=== PATIENT | male | born 1960 | race Caucasian/White ===

== ENCOUNTER 2016-12-19 08:19 | Emergency (ER) | payer OTHER ==
[2016-12-19 08:30] VITALS: BP 122/77
--- NOTE | 2016-12-23 12:21 | UC ---
heladio Vidal Timothy, scribed for Tracy Aguilera MD on 12/19/16 at 0919 . FLU HPI - HPI Summary HPI Summary: Harrison Lozoya is a 56 yo male presenting to [facility] with URI Sx including productive cough with green and yellow sputum, congestion, subjective fever, and sore throat since 12/13/16. he states that his cough is more productive at night when he sleeps on his back. He notes increased throat pain when he swallows. He has an O2 machine, but does not use CPAP. He notes some SOB due o his congestion. He denies any rash. Pt notes he has had trigger finger recently and had a cortisone shot. His MHx includes HTN, COPD, asthma, arthritis lower back, tobacco use. - History of Current Complaint Stated Complaint: URI Time Seen by Provider: 12/19/16 09:25 Hx Obtained From: Patient Onset/Duration: Gradual Onset, Lasting Days, Still Present Severity Currently: Moderate Severity Initially: Moderate Associated Signs & Symptoms: Positive: Fever - subjective, Cough - productive, Sore Throat - Allergy/Home Medications Allergies/Adverse Reactions: Allergies Allergy/AdvReac Type Severity Reaction Status Date / Time No Known Allergies Allergy Verified 08/04/15 10:34 Home Medications: Home Medications Albuterol HFA INHALER* [Ventolin HFA Inhaler*] 12/19/16 [History] Lisinopril TAB* [Prinivil TAB*] 5 mg PO DAILY 12/19/16 [History Confirmed ] Mometasone/Formoter 200/5 MDI* [Dulera 200/5 MDI*] 2 puff INH BID 12/19/16 [ History Confirmed 12/19/16] NIFEdipine CAP* [Procardia CAP*] 10 mg PO 12/19/16 [History] oxyCODONE/Acetamin 5/325 MG* [Percocet 5/325 TAB*] 1 tab PO Q4H PRN 12/19/16 [ History Confirmed 12/19/16] PMH/Surg Hx/FS Hx/Imm Hx Cardiovascular History: Hypertension Respiratory History: COPD, Asthma - Surgical History Surgical History: Yes Surgery Procedure, Year, and Place: L knee ARTHROSCOPIC 2014, R knee ARTHROSCOPIC 2013, ureter surgery RIGHT congenital deformity 1983 - Family History Known Family History: Positive: Hypertension Negative: Cardiac Disease, Diabetes - Social History Alcohol Use: Weekly Substance Use Type: Marijuana Substance Use Comment - Amount & Last Used: OCCASIONAL USE OF MARIJUANA Smoking Status (MU): Heavy Every Day Tobacco Smoker Amount Used/How Often: 1 PPD X 35 YEARS Have You Smoked in the Last Year: Yes Review of Systems Constitutional: Fever - subjective Skin: Negative Eyes: Negative ENT: Sore Throat, Nasal Discharge, Sinus Congestion Respiratory: Shortness Of Breath, Cough Cardiovascular: Negative Gastrointestinal: Negative Genitourinary: Negative Motor: Negative Neurovascular: Negative Musculoskeletal: Negative Neurological: Negative Psychological: Negative All Other Systems Reviewed And Are Negative: Yes Physical Exam Triage Information Reviewed: Yes Appearance: Well-Appearing, No Pain Distress, Well-Nourished Vital Signs: Initial Vital Signs Temp 98.8 F 12/19/16 08:27 Pulse 81 12/19/16 08:27 Resp 20 12/19/16 08:27 BP 122/77 12/19/16 08:27 Pulse Ox 96 12/19/16 08:27 Vital Signs Reviewed: Yes Eye Exam: Normal ENT: Positive: Pharyngeal erythema - posterior. No sores, TM red - bilaterally, some fluid build up, Other: - Uvula midline Neck: Positive: Supple, Other: - submandibular adenopathy Respiratory: Positive: Chest non-tender, No respiratory distress, Wheezing - posterior bases have inspiratory and expiratory wheezes Cardiovascular Exam: Normal Cardiovascular: Positive: RRR, No Murmur, Pulses Normal, Brisk Capillary Refill Abdominal Exam: Normal Abdomen Description: Positive: Nontender, No Organomegaly, Soft Bowel Sounds: Positive: Present Musculoskeletal Exam: Normal Musculoskeletal: Positive: Strength Intact Neurological Exam: Normal - nonfocal, grossly intact Psychological Exam: Normal - conversing easily and appropriately Skin Exam: Normal Skin: Negative: rashes Flu Course/Dx - Course Course Of Treatment: Harrison Lozoya is a 56 yo male presenting to [facility] with URI Sx including productive cough with green and yellow sputum, congestion, subjective fever, and sore throat for the past week. Pt medication reviewed this visit. His Group A Rapid Strep Test is negative. Pt was counseled to follow up with his PCP for a nebulizer machine prescription. Discussed possible treatment courses for Pt. Pt recalls a negative reaction to ciprofloxacin. Reviewed possible negative side effects of ciprofloxacin. Pt will be prescribed levaquin. He is agreeable to this plan. Questions posed by Pt answered to best of ability. Pt declines prednisone, as he states it is not particularly effective for him. Discussed possible CXR, which Pt declines. After clinical examination, he will be discharged home with sore throat and bronchitis with appropiate instructions. - Differential Dx/Diagnosis Differential Diagnosis/HQI/PQRI: Bronchitis, Pneumonia, Upper Respiratory Infection Provider Diagnoses: sore throat, bronchitis Discharge - Discharge Plan Condition: Stable Disposition: HOME Prescriptions: Levofloxacin TAB* [Levaquin TAB*] 500 mg PO DAILY #10 tab Patient Education Materials: Pharyngitis (ED), Acute Bronchitis (ED), COPD ( Chronic Obstructive Pulmonary Disease) (ED) Forms: *Work Release Referrals: Flora Alvarez MD [Primary Care Provider] - 1 Week Additional Instructions: Please follow up with your primary care physician regarding your visit to urgent care today. Return to urgent care or the emergency department with any new or recurring symptoms. The documentation as recorded by the heladio westbrook Timothy accurately reflects the service I personally performed and the decisions made by me, Tracy Aguilera MD.
== END 2016-12-19 09:49 | disposition home or self-care (01) ==
LOC: UCEAST 08:19
DX: J02.9 Acute pharyngitis, unspecified (principal); J40 Bronchitis, not specified as acute or chronic; R50.9 Fever, unspecified; I10 Essential (primary) hypertension; J44.9 Chronic obstructive pulmonary disease, unspecified; F17.210 Nicotine dependence, cigarettes, uncomplicated
CPT/HCPCS: 87651; 99212; G0463

== ENCOUNTER 2022-05-20 06:32 | Inpatient (IN) ==
[~2022-05-20 06:32] MED LIST: Buffered Lidocaine 1% SYRIN 1 ml INTRADERM ONE; Lactated Ringers 1000 ml BAG 1,000 ML IV SCH; Naloxone 0.4 mg VIAL 0.4 mg/ml 1 ml VIAL IV PRN; Ondansetron 4 mg VIAL 2 MG/ML 2 ml VIAL IV PRN
[2022-05-20] MEDS ORDERED: ceFAZolin *3* GM in NS PREMIX 3 GM/100 ML BAG IV ONE (07:25)
[2022-05-20] MEDS ORDERED: Lidocaine 1% VIAL 10 MG/ML VIAL 30 ML ONE (07:59)
[2022-05-20] MEDS ORDERED: Midazolam 2 mg/2 ml VIAL 1 mg/ml 2 ml VIAL (2 mg) ONE (08:04)
[2022-05-20] MEDS ORDERED: Dexamethasone IV 4 MG/ML VIAL 1 ml VIAL ONE ×2 (08:05→12:20)
[2022-05-20] MEDS ORDERED: Lidocaine 2% PF 5 ML VIAL ONE ×2 (08:05→11:10)
[2022-05-20] MEDS ORDERED: Bupivacaine 0.5% SDV PF 30ML VIAL ONE (08:05)
[2022-05-20] MEDS ORDERED: Vancomycin 1,000 MG VIAL ONE ×2 (10:52→10:56)
[2022-05-20] MEDS ORDERED: Bupivacaine 0.5% W/EPI SDV 10 ML VIAL INJ ONE (10:52)
[2022-05-20] MEDS ORDERED: Rocuronium 50 mg VIAL 10 mg/ml 5 ml VIAL (50 mg) ONE ×2 (11:10→12:17)
[2022-05-20] MEDS ORDERED: Propofol 10 MG/ML 20 ML BTL ONE (11:10)
[2022-05-20] MEDS ORDERED: fentaNYL 100 mcg/2 ml 50 MCG/ML VIAL ONE ×4 (11:10→15:27)
[2022-05-20] MEDS ORDERED: HYDROmorphone 0.5 MG/0.5 ML SYRINGE ONE (11:46)
[2022-05-20] MEDS ORDERED: Phenylephrine IV 10 MG/ML 1 ml VIAL ONE (12:13)
[2022-05-20] MEDS ORDERED: Ondansetron 4 mg VIAL 2 MG/ML 2 ml VIAL ONE (12:20)
[2022-05-20] MEDS ORDERED: Acetaminophen IV 1 GM/100ML 1,000 MG/100 ML BAG IV ONE (12:21)
[2022-05-20] MEDS ORDERED: Levalbuterol HFA INHALER MDI ONE (12:36)
[2022-05-20] MEDS ORDERED: Sugammadex 500 MG/5 ML 5 ml VIAL IV PUSH ONE (13:49)
[2022-05-20] MEDS ORDERED: Lactulose 30 ml UDC PO PRN (14:44)
[2022-05-20] MEDS ORDERED: Magnesium Hydroxide LIQ 30 ML UDC PO PRN (14:44)
[2022-05-20] MEDS ORDERED: Ondansetron ODT 4 mg TAB 4 MG TAB PO PRN (14:44)
[2022-05-20] MEDS ORDERED: Ondansetron 4 mg VIAL 2 MG/ML 2 ml VIAL IV PRN (14:44)
[2022-05-20] MEDS: fentaNYL 100 mcg/2 ml 50 MCG/ML VIAL IV PRN ×5 (14:46→15:33)
[2022-05-20] MEDS ORDERED: oxyCODONE/Acetamin 5/325 mg TAB PO PRN (15:00)
[2022-05-20] MEDS ORDERED: Albuterol HFA INHALER 8 gm MDI INH PRN (15:00)
[2022-05-20] MEDS ORDERED: Lactated Ringers 1000 ml BAG 1,000 ML IV SCH (15:00)
[2022-05-20] MEDS ORDERED: HYDROmorphone 1 MG/1 ML SYRINGE ONE (16:13)
[2022-05-20] MEDS: Morphine 2 MG/ML SYRINGE IV PRN ×2 (17:32→21:34)
[2022-05-20] MEDS: Mometasone/Formoter 200/5 MDI INH SCH (19:25)
[2022-05-20] MEDS: ceFAZolin 1 GM ADVAN 1 GM in NS 0.9% 50 ML 50 ML IVPB SCH (21:17)
[2022-05-20] MEDS: Magnesium Hydroxide LIQ 30 ML UDC PO SCH (21:25)
[2022-05-20] MEDS: oxyCODONE/Acetamin 5/325 mg TAB PO PRN (23:58)
[2022-05-21] MEDS: ceFAZolin 1 GM ADVAN 1 GM in NS 0.9% 50 ML 50 ML IVPB SCH ×2 (04:29→12:19)
[2022-05-21] MEDS: oxyCODONE/Acetamin 5/325 mg TAB PO PRN ×2 (04:29→08:32)
[2022-05-21 06:26] LABS: Hematocrit 41 % (42-52); Hemoglobin 13.6 g/dL (14.0-18.0); Mean Platelet Volume 7.5 fL (7.4-10.4); Platelet Count 217 10^3/uL (150-450)
[2022-05-21 06:39] LABS: Calcium 8.6 mg/dL (8.6-10.3); Potassium 4.7 mmol/L (3.5-5.0)
[2022-05-21] MEDS: Mometasone/Formoter 200/5 MDI INH SCH (08:14)
[2022-05-21] MEDS: Magnesium Hydroxide LIQ 30 ML UDC PO SCH (08:31)
[2022-05-21] MEDS ORDERED: Vitamin THERAPEUTIC TAB PO SCH (09:00)
[2022-05-21] MEDS: Morphine 2 MG/ML SYRINGE IV PRN (10:07)
[2022-05-21 11:13] VITALS: BP 116/61
== END 2022-05-21 13:26 | disposition home or self-care (01) | DRG 302 ==
LOC: AA 06:32 → SSU 17:12
PROVIDERS: ADMIT Orthopaedic Surgery; ATTEND Orthopaedic Surgery